=== PATIENT | male | born 1985 | race Caucasian/White ===

== ENCOUNTER 2016-10-21 14:41 | Emergency (ER) | payer BC ==
--- NOTE | 2016-10-21 14:52 | ER Document Report ---
ED Medical Screen (RME) - General Stated Complaint: BACK PAIN Notes: This 31-year-old male presented to the emergency room today with an exacerbation of chronic back pain after bending over to pick and shovel man a laundry Basket. TRAVEL OUTSIDE OF THE [place] IN LAST 30 DAYS: No
--- NOTE | 2016-10-21 15:52 | ER Document Report ---
ED Neck/Back Problem - General Chief Complaint: Back Pain Stated Complaint: BACK PAIN Time seen by provider: 15:44 Mode of Arrival: Ambulatory Information source: Patient TRAVEL OUTSIDE OF THE [place] IN LAST 30 DAYS: No - HPI Patient complains to provider of: Lower back - pt with several month h/o intermittent LBP - starting when he picked up a heavy object in August. He has a appt. for the [facility] in [facility] for later ethis month. He denies any change in bowel or bladder. No h/o trauma - Related Data Allergies/Adverse Reactions: No Known Allergies Allergy (Unverified 10/21/16 14:53) Past Medical History - Social History Smoking Status: Current Every Day Smoker Cigarette use (# per day): Yes Chew tobacco use (# tins/day): No Smoking Education Provided: Yes Frequency of alcohol use: Occasional Drug Abuse: None Family History: None Patient has suicidal ideation: No Patient has homicidal ideation: No Renal/ Medical History: Denies: Hx Peritoneal Dialysis Review of Systems - Review of Systems Constitutional: No symptoms reported EENT: No symptoms reported Cardiovascular: No symptoms reported Gastrointestinal: No symptoms reported Musculoskeletal: See HPI, Back pain Physical Exam - Vital signs Vitals: Temp Pulse Resp BP Pulse Ox 97.6 F 104 H 18 132/69 H 97 10/21/16 14:53 10/21/16 14:53 10/21/16 14:53 10/21/16 14:53 10/21/16 14:53 - General General appearance: Appears well In distress: None - Back Back: Tender - there is min TTP of the lumbar spine diffusely with some paraspinal muscle spasm. Neg SLR; N/V intact Course - Vital Signs Vital signs: Temp Pulse Resp BP Pulse Ox 97.6 F 104 H 18 132/69 H 97 10/21/16 14:53 10/21/16 14:53 10/21/16 14:53 10/21/16 14:53 10/21/16 14:53 Discharge - Discharge Clinical Impression: Low back pain Qualifiers: Chronicity: chronic Back pain laterality: bilateral Sciatica presence: without sciatica Qualified Code(s): M54.5 - Low back pain; G89.29 - Other chronic pain Condition: Stable Disposition: HOME, SELF-CARE Instructions: Low Back Pain ([facility]), Muscle Strain ([facility]), Ice Packs ([facility]) Additional Instructions: rest, take meds as prescribed, return if worse Prescriptions: Cyclobenzaprine HCl [Flexeril 10 mg Tablet] 10 mg PO TIDP PRN #15 tab PRN Reason: Etodolac [Lodine] 400 mg PO BID #14 tablet Referrals: KRYS DAVILA DO [ACTIVE STAFF] - Follow up as needed
[2016-10-21 16:48] VITALS: BP 124/76
== END 2016-10-21 16:48 | disposition home or self-care (01) ==
LOC: ER 14:41
DX: G89.29 Other chronic pain (principal); M54.5 Low back pain; F17.210 Nicotine dependence, cigarettes, uncomplicated
CPT/HCPCS: 99283